=== PATIENT | female | born 1990 | race Two or more races ===

== ENCOUNTER 2025-10-20 02:34 | Emergency (ER) | payer OTHER ==
[~2025-10-20] VITALS: Ht 157.5 cm; Wt 59.0 kg
[2025-10-20] MEDS ORDERED: PRENATABS RX T1 EACH PO (02:46)
[2025-10-20 02:48] VITALS: BP 113/74; O2SAT 99
[2025-10-20 04:39] LABS: URINE APPEARANCE Cloudy; URINE BILIRRUBIN Negative (NEGATIVE); URINE BLOOD Large; URINE COLOR Yellow; URINE GLUCOSE Negative (NEGATIVE); URINE KETONE Negative (NEGATIVE); URINE LEUKOCYTE Trace; URINE NITRATE Negative; URINE PROTEIN Negative (NEGATIVE); URINE UROBILINOGEN 0.2 E.U./dl
[2025-10-20 04:40] LABS: BASO % 0.3 % (0.1-1.2); EOS # 0.12 (0.04-0.54); EOS % 3.8 % (0.7-7.0); LYMPH # 0.91 (1.18-3.74); LYMPH % 29.2 % (19.3-53.1); MEAN PLATELET VOLUME 10.10 fl (9.4-12.4); MONO # 0.38 (0.24-0.82); NEUT # 1.69 (1.56-6.13); NEUT % 54.2 % (34.0-71.1); RED CELL DISTRIBUTION WIDTH 13.2 % (11.6-14.4)
[2025-10-20 04:42] LABS: URINE EPITHELIAL CELLS 65.9 uL (0.0-38.8); URINE RBC 62.9 uL (0.0-20.8); URINE WBC 13.2 uL (0.0-23.2)
[2025-10-20 04:52] LABS: INR 0.98
[2025-10-20 05:07] LABS: URINE CAST 0.14 uL (0.0-1.40)
[2025-10-20 05:10] LABS: BUN CREA RATIO 15.0 (7.0-25.0); CREATININE SERUM 0.46 mg/dL (0.55-1.02); GFR 156.44; GLUCOSE FASTING 96.0 mg/dL (65-100); OSMOLALITY SERUM 279.0 MOSM/KG (275-295)
[2025-10-20 05:16] LABS: EOSINOPHIL MAN 4.0 %; LYMPHOCYTE MAN 21.0 %; MONO % 12.2 % (4.7-12.5); MONOCYTE MAN 12.0 %; NEUTROPHILS MAN 59.0 %
[2025-10-20 05:18] LABS: HCG QUANTITATIVE 39316.0 mUI/mL (1-3)
== END 2025-10-20 08:33 ==
LOC: ER 02:34
PROVIDERS: General Practice
DX: O46.8X1 Other antepartum hemorrhage, first trimester (principal); Z3A.01 Less than 8 weeks gestation of pregnancy